=== PATIENT | female | born 1955 ===

== ENCOUNTER 2018-06-06 07:05 | Day surgery (SDC) | payer OTHER ==
[~2018-06-06 07:05] MED LIST: CARDIZEM LA240 MG PO; CHANTIX1 MG PO; GLUMETZA500 MG PO
[2018-06-06] MEDS ORDERED: PERCOCET 5-3251 EACH PO (12:27)
[2018-06-06] MEDS ORDERED: LOVENOX40 MG/0.4 SUBCUTANEO (12:27)
== END 2018-06-06 15:00 | disposition home or self-care (01) ==
LOC: CIR.AMB 07:05
DX: D27.1 Benign neoplasm of left ovary (principal)